=== PATIENT | female | born 1975 | race Caucasian/White ===

== ENCOUNTER 2016-08-03 21:48 | Emergency (ER) | payer OTHER ==
[~2016-08-03] VITALS: Ht 167.6 cm; Wt 90.7 kg
--- OUTSIDE RECORDS SUMMARY | 2016-08-03 22:12 | External Medical Summary Rpt ---
Author Author TIFFANY Enamorado, TIFFANY Eanmorado Organization [employer] Address Unknown Phone Unavailable
--- OUTSIDE RECORDS SUMMARY | 2016-08-03 22:12 | External Medical Summary Rpt ---
Demographics Preferred Language Spanish Marital Status Unknown Zoroastrian Affiliation Unknown Race Unknown Ethnic Group Unknown Author Author , Organization [employer] Address Unknown Phone Unavailable Purpose Continuity of Care Document - through 2016 Immunization No patient found.
--- OUTSIDE RECORDS SUMMARY | 2016-08-03 22:12 | External Medical Summary Rpt ---
Author Author [employer] Organization [employer] Address Unknown Phone Unavailable Purpose Continuity of Care Document - through 2016
--- OUTSIDE RECORDS SUMMARY | 2016-08-03 22:12 | External Medical Summary Rpt ---
Demographics Preferred Language Angolan Marital Status Unknown Cheondoism Affiliation Unknown Race Unknown Ethnic Group Unknown Author Author , Organization [employer] Address Unknown Phone Unavailable Purpose Continuity of Care Document - through 2016 Immunization No patient found.
--- OUTSIDE RECORDS SUMMARY | 2016-08-03 22:12 | External Medical Summary Rpt ---
Author Author TIFFANY Enamorado, TIFFANY Enamorado Organization [employer] Address Unknown Phone Unavailable
--- OUTSIDE RECORDS SUMMARY | 2016-08-03 22:12 | External Medical Summary Rpt ---
Demographics Home Phone Preferred Language Spanish Marital Status Unknown Hoahaoism Affiliation Unknown Race Unknown Ethnic Group Unknown Author Author , Organization [employer] Address Unknown Phone Unavailable Purpose Continuity of Care Document - 06-01-2016 through 2016 Problems Code Diagnosis DOS Provider Status E78.5 Hyperlipide 06-05-2016 constantino, unspecified I10 Essential 06-05-2016 (primary) hypertensio n R07.9 Chest pain, 06-05-2016 unspecified S46.912A Strain of 06-05-2016 unspecified muscle, fascia and tendon at shoulder and upper arm level, left arm, initial encounter X50.9XXA Other and 06-05-2016 unspecified overexertio n or strenuous movements or postures, initial encounter 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
--- OUTSIDE RECORDS SUMMARY | 2016-08-03 22:12 | External Medical Summary Rpt ---
Demographics Home Phone Preferred Language Amharic Marital Status Unknown Orthodox Affiliation Unknown Race Unknown Ethnic Group Unknown [...]
--- NOTE | 2016-08-03 22:45 | Emergency Room Report ---
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 N Clinical Suspician of Infection? N Mental Status: 1 - Regular (Normal Baseline) Sepsis Risk:Low Sepsis Risk Have you (or family members/close friends) recently traveled outside the [place]? N If Yes, where/when: Have you had exposure to infectious disease within the past month? N TB? Other? Specify: Source patient, RN notes reviewed, family, RN/MD Exam Limitations no limitations Comment This is a 41-year-old female patient presenting emergency room after sustaining a fall at home, downstairs, approximately 3 steps, resulting in injury to her RIGHT foot and LEFT flank. Patient has any other associated injuries. ALLERGIES Coded Allergies: cephalexin (From KEFLEX) (FEVER 08/03/16) History Medical History General CAD? No Angina: No MS: No Hypertension? Yes Hyperlipidemia? Yes CHF? No DVT? No PE? No COPD? No Asthma? No Anemia? No GERD? No Gastric ulcers? No GI Bleed? No Hernia? No Thyroid Problems? No Hypothyroidism? No CVA? No Seizures? No Diabetes? No Renal Insuffiency? No End Stage Renal Disease? No UTI? No Stones? No BPH? No GB Disease: No Nephritic Syndrome? No Asplenia? No Hepatitis? No Sickle Cell Disease? No Arthritis? No Migraines? No Cataracts? No Glaucoma? No MRSA? No HIV? No TB? No Anxiety? Yes Depression? No Cancer? 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 Musculoskeletal joint pain (RIGHT foot) Physical Exam Vital Signs Vital Signs Date Time Temp Pulse Resp B/P Pulse O2 O2 Flow FiO2 Ox Delivery Rate 08/03 2258 20 08/03 2226 98.8 89 20 135/84 99 05/04 2155 98.8 87 20 140/81 99 General Appearance normal appearance, WD/WN, moderate distress Neck normal inspection, non-tender, supple, full range of motion Respiratory Status Yes: trachea midline, chest symmetrical, non tender chest. No: respiratory distress. Lung Sounds bilateral: normal breath sounds, lungs clear. 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 No Comment Upon reevaluation patient appears medically stable, clinically improved, in minor distress. Advised patient of results obtained, need to take pain medications as needed for pain and follow up with PCP if no better, per discharge instructions. Results/Orders Laboratory Tests 08/03/16 2300: Urine Color YELLOW, Urine Appearance CLEAR, Urine pH 6.5, Ur Specific [place] 1.010, Urine Protein NEGATIVE, Urine Ketones NEGATIVE, Urine Blood NEGATIVE, Urine Nitrate NEGATIVE, Urine Bilirubin NEGATIVE, Urine Urobilinogen 0.2, Ur Leukocyte Esterase NEGATIVE, Urine WBC OCC, Ur Squamous Epith Cells 3-5, Urine Bacteria TRACE, Urine Glucose NEGATIVE Current Medication Orders Sig/Hoang Start time Last Medication Dose Route Stop Time Status Admin Tramadol HCl 1 LANA ONCE ONE 08/04 0045 AC PO 08/04 0046 Tramadol HCl 0 .STK-MED ONE 08/04 0040 DC PO Iopamidol 75 ML ONCE ONE 08/04 0030 UNV 08/04 IV 08/04 0031 0022 Sodium Chloride 10 ML PRN PRN 08/04 0030 UNV 08/04 IV 08/04 0151 0022 Sodium Chloride 10 ML PRN PRN 08/03 2345 AC IV 08/04 2334 Hydromorphone HCl 0 .STK-MED ONE 08/03 2252 DC .ROUTE Ondansetron HCl 0 .STK-MED ONE 08/04 2251 DC .ROUTE Hydromorphone HCl 1 MG ONCE ONE 08/03 2244 DC 08/03 IM 08/03 Ondansetron HCl 4 MG ONCE ONE 08/03 2244 DC 08/03 IM 08/03 2245 225 Orders Procedure Date/time Status DIET-NOTHING BY MOUTH 08/04 B Active IV SALINE LOCK 08/[address] ABD & PELVIS W/ CONTRAST 08/[address] ABD/PELVIS REQ 08/03 2245 Complete URINE 08/03 2245 Complete URINALYSIS/COMPLETE 08/04 2243 Complete HIP LT 2-3V W/PELVIS IF PERFOR 08/03 2202 Active FOOT-RT-3 VIEWS 08/03 2202 Active XRAY/CT/US XRAY/CT/US CT abdomen, pelvis CT interpretation by discussed w/radiologist CT Results see radiologist's report, consistent with LEFT lower flank subcutaneous fat stranding, suggesting contusion - Dr. Segovia at 12:30 AM EST Departure Departure Time of Disposition 0035 Disposition DC Home or Self Care(routine) Clinical Impression Primary Impression: Abdominal wall contusion Qualifiers: Encounter type: initial encounter Qualified Code: S30.1XXA - Contusion of abdominal wall, initial encounter Secondary Impressions: Contusion of right foot Qualifiers: Encounter type: initial encounter Qualified Code: S90.31XA - Contusion of right foot, initial encounter Condition STABLE Referrals Woo TYLER,Vishnu Wilkerson (Family): 4 Days-Call Office If not better Patient Instructions DI for Contusion Additional Instructions Please take the medications prescribed as directed, follow-up with Dr. Berkowitz if not better early next week. Discharge Counseling Counseled pt/family regarding diagnosis, test results, medications/RX, home care, follow up needs Comment Please take the medications prescribed as directed, follow-up with Dr. Berkowitz if not better early next week. ED Critical Care Critical Care No at [phone]
--- NOTE | 2016-08-03 22:45 | Emergency Room Report ---
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 N Clinical Suspician of Infection? N Mental Status: 1 - Regular (Normal Baseline) Sepsis Risk:Low Sepsis Risk Have you (or family members/close friends) recently traveled outside the [place]? N If Yes, where/when: Have you had exposure to infectious disease within the past month? N TB? Other? Specify: Source patient, RN notes reviewed, family, RN/MD Exam Limitations no limitations Comment This is a 41-year-old female patient presenting emergency room after sustaining a fall at home, downstairs, approximately 3 steps, resulting in injury to her RIGHT foot and LEFT flank. Patient has any other associated injuries. ALLERGIES Coded Allergies: cephalexin (From KEFLEX) (FEVER 08/03/16) History Medical History General CAD? No Angina: No MA: No Hypertension? Yes Hyperlipidemia? Yes CHF? No DVT? No PE? No COPD? No Asthma? No Anemia? No GERD? No Gastric ulcers? No GI Bleed? No Hernia? No Thyroid Problems? No Hypothyroidism? No CVA? No Seizures? No Diabetes? No Renal Insuffiency? No End Stage Renal Disease? No UTI? No Stones? No BPH? No GB Disease: No Nephritic Syndrome? No Asplenia? No Hepatitis? No Sickle Cell Disease? No Arthritis? No Migraines? No Cataracts? No Glaucoma? No MRSA? No HIV? No TB? No Anxiety? Yes Depression? No Cancer? 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 Musculoskeletal joint pain (RIGHT foot) Physical Exam Vital Signs Vital Signs Date Time Temp Pulse Resp B/P Pulse O2 O2 Flow FiO2 Ox Delivery Rate 08/03 2258 20 08/03 2226 98.8 89 20 135/84 99 05/04 2155 98.8 87 20 140/81 99 General Appearance normal appearance, WD/WN, moderate distress Neck normal inspection, non-tender, supple, full range of motion Respiratory Status Yes: trachea midline, chest symmetrical, non tender chest. No: respiratory distress. Lung Sounds bilateral: normal breath sounds, lungs clear. 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 No Comment Upon reevaluation patient appears medically stable, clinically improved, in minor distress. Advised patient of results obtained, need to take pain medications as needed for pain and follow up with PCP if no better, per discharge instructions. Results/Orders Laboratory Tests 08/03/16 2300: Urine Color YELLOW, Urine Appearance CLEAR, Urine pH 6.5, Ur Specific [place] 1.010, Urine Protein NEGATIVE, Urine Ketones NEGATIVE, Urine Blood NEGATIVE, Urine Nitrate NEGATIVE, Urine Bilirubin NEGATIVE, Urine Urobilinogen 0.2, Ur Leukocyte Esterase NEGATIVE, Urine WBC OCC, Ur Squamous Epith Cells 3-5, Urine Bacteria TRACE, Urine Glucose NEGATIVE Current Medication Orders Sig/Hoang Start time Last Medication Dose Route Stop Time Status Admin Tramadol HCl 1 LANA ONCE ONE 08/04 0045 AC PO 08/04 0046 Tramadol HCl 0 .STK-MED ONE 08/04 0040 DC PO Iopamidol 75 ML ONCE ONE 08/04 0030 UNV 08/04 IV 08/04 0031 0022 Sodium Chloride 10 ML PRN PRN 08/04 0030 UNV 08/04 IV 08/04 0151 0022 Sodium Chloride 10 ML PRN PRN 08/03 2345 AC IV 08/04 2334 Hydromorphone HCl 0 .STK-MED ONE 08/03 2252 DC .ROUTE Ondansetron HCl 0 .STK-MED ONE 08/04 2251 DC .ROUTE Hydromorphone HCl 1 MG ONCE ONE 08/03 2244 DC 08/03 IM 08/03 Ondansetron HCl 4 MG ONCE ONE 08/03 2244 DC 08/03 IM 08/03 2245 225 Orders Procedure Date/time Status DIET-NOTHING BY MOUTH 08/04 B Active IV SALINE LOCK 08/[address] ABD & PELVIS W/ CONTRAST 08/[address] ABD/PELVIS REQ 08/03 2245 Complete URINE 08/03 2245 Complete URINALYSIS/COMPLETE 08/04 2243 Complete HIP LT 2-3V W/PELVIS IF PERFOR 08/03 2202 Active FOOT-RT-3 VIEWS 08/03 2202 Active XRAY/CT/US XRAY/CT/US CT abdomen, pelvis CT interpretation by discussed w/radiologist CT Results see radiologist's report, consistent with LEFT lower flank subcutaneous fat stranding, suggesting contusion - Dr. Segovia at 12:30 AM EST Departure Departure Time of Disposition 0035 Disposition DC Home or Self Care(routine) Clinical Impression Primary Impression: Abdominal wall contusion Qualifiers: Encounter type: initial encounter Qualified Code: S30.1XXA - Contusion of abdominal wall, initial encounter Secondary Impressions: Contusion of right foot Qualifiers: Encounter type: initial encounter Qualified Code: S90.31XA - Contusion of right foot, initial encounter Condition STABLE Referrals Woo TYLER,Vishnu Wilkerson (Family): 4 Days-Call Office If not better Patient Instructions DI for Contusion Additional Instructions Please take the medications prescribed as directed, follow-up with Dr. Berkowitz if not better early next week. Discharge Counseling Counseled pt/family regarding diagnosis, test results, medications/RX, home care, follow up needs Comment Please take the medications prescribed as directed, follow-up with Dr. Berkowitz if not better early next week. ED Critical Care Critical Care No at 0045
[2016-08-03 23:05] LABS: URINE BILIRUBIN - DIPSTICK NEGATIVE (NEG); URINE BLOOD NEGATIVE (NEG)
[2016-08-04 00:50] VITALS: BP 104/69
--- NOTE | 2016-08-04 05:35 | RADIOLOGY REPORT PS360 ---
FOOT-RT-3 VIEWS HISTORY: Right foot pain following injury S/P FALL C/O RIGHT FOOT PAIN ORDERING PHYSICIAN: Chris Bauer MD PATIENT AGE: 41 years COMPARISON: None FINDINGS: There is an oblique lucency involving the base and medial aspect of the distal phalanx of the great toe consistent with a nondisplaced fracture. No other significant anomalies evident. IMPRESSION: Nondisplaced fracture involving the distal phalanx of the great toe
--- NOTE | 2016-08-04 05:37 | RADIOLOGY REPORT PS360 ---
HIP LT 2-3V W/PELVIS IF PERFOR HISTORY: Left hip pain following injury S/P FALL C/O RIGHT FOOT PAIN ORDERING PHYSICIAN: Chris Bauer MD PATIENT AGE: 41 years COMPARISON: None FINDINGS: No fracture or dislocation is evident. No significant degenerative change. No lytic or blastic change. Unremarkable soft tissues . Surgical clips are present in the left pelvic region IMPRESSION: Negative left hip
--- NOTE | 2016-08-04 05:44 | RADIOLOGY REPORT PS360 ---
CT ABD PELVIS W/ CONTRAST CLINICAL INDICATION: LEFT FLANK PAIN S/P FALL ORDERING PHYSICIAN: Chris Bauer MD PATIENT AGE: 41 years COMPARISON: None TECHNIQUE: Axial images obtained with sagittal and coronal reformats. PROCEDURE: Oral Contrast: None IV Contrast: 75 mL Isovue-370. FINDINGS: Lower thorax: No acute finding ABDOMEN: Liver: No masses or biliary dilatation. Gallbladder: Nondistended. No radio opaque stones. Pancreas: No masses or peripancreatic fluid collections. Spleen: Unremarkable. Adrenals: Unremarkable Kidneys/ureters: Nonobstructing right renal calculus. There is mild ectasia of the left ureter with ectopic ureteral insertion along the superior aspect of urinary bladder. Subcentimeter left renal cortical cyst. Stomach bowel: Nondistended. No obvious mass or thickening. There is a tiny umbilical hernia containing fat Appendix: No evidence of appendicitis PELVIS: Reproductive: Hysterectomy Bladder: Nondistended. No obvious stones or masses. ABDOMEN & PELVIS: Peritoneum: No abnormal fluid collections. No obvious inflammatory changes. No free air. Lymph nodes: No enlarged lymph nodes apparent. Vasculature: No evidence of abdominal aortic aneurysm. No retroperitoneal hemorrhage evident. Bones: Bilateral spondylolysis at L5. No acute fracture apparent. Soft tissues: There is mild increased density in the subcutaneous region in the left flank which may be due to contusion. There is trace amount of gas in the upper hip on the left and could be due to recent injection or laceration. IMPRESSION: 1. Mild contusion of the left flank. 2. No acute intra-abdominal or pelvic pathology. 3. Trace amount gas in the upper subcutaneous tissues of the left hip posteriorly and may be due to recent injection or laceration 3. Left UVJ ectopia. 4. Nonobstructing right renal stone
== END 2016-08-04 00:51 | disposition home or self-care (01) ==
LOC: ER 21:48
PROVIDERS: Emergency Medicine
DX: S30.1XXA Contusion of abdominal wall, initial encounter (principal); S90.31XA Contusion of right foot, initial encounter; I10 Essential (primary) hypertension; W10.9XXA Fall (on) (from) unspecified stairs and steps, initial encounter; Y92.009 Unspecified place in unspecified non-institutional (private) residence as the place of occurrence of the external cause
CPT/HCPCS: J2405; Q9967

== ENCOUNTER 2017-03-05 15:09 | Emergency (ER) | payer OTHER ==
[~2017-03-05] VITALS: Ht 162.6 cm; Wt 86.2 kg
--- OUTSIDE RECORDS SUMMARY | 2017-03-05 15:13 | External Medical Summary Rpt | CCD ---
Demographics Preferred Language Burmese Marital Status Unknown Adventism Affiliation Unknown Race Unknown Ethnic Group Unknown Author Author , [employer] ALL[employer] Address Unknown Phone Immunization No patient found.
--- OUTSIDE RECORDS SUMMARY | 2017-03-05 15:13 | External Medical Summary Rpt ---
Author Author TIFFANY Enamorado, [employer] Organization [employer] Address Unknown Phone Unavailable
--- OUTSIDE RECORDS SUMMARY | 2017-03-05 15:13 | External Medical Summary Rpt | CCD ---
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 OF UNSPECIFIED LUNG E11.9 TYPE 2 01-24-2017 DIABETES MELLITUS WITHOUT COMPLICATIO NS I10 ESSENTIAL 01-24-2017 (PRIMARY) HYPERTENSIO N E78.5 Hyperlipide 06-05-2016 constantino, unspecified R07.9 Chest pain, 06-05-2016 unspecified S46.912A Strain of 06-05-2016 unspecified muscle, fascia and tendon at shoulder and upper arm level, left arm, initial encounter X50.9XXA Other and 06-05-2016 unspecified overexertio n or strenuous movements or postures, initial encounter 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
--- OUTSIDE RECORDS SUMMARY | 2017-03-05 15:13 | External Medical Summary Rpt | CCD ---
Author Author , [employer] Organization [employer] Address Unknown Phone [email or web address] Purpose Continuity of Care Document - 06-01-2016 [...]
--- OUTSIDE RECORDS SUMMARY | 2017-03-05 15:13 | External Medical Summary Rpt | CCD ---
Demographics Preferred Language Zambian Marital Status Unknown Jehovah'S Witness Affiliation Unknown Race Unknown Ethnic Group Unknown Author Author , TIFFANY ALLEN Address Unknown Phone Immunization No patient found.
--- NOTE | 2017-03-05 16:05 | RADIOLOGY REPORT PS360 ---
KNEE-3 VIEWS-RT HISTORY: Popping sensation HEARD IT POP ORDERING PHYSICIAN: DENISSE HAYNES APRN PATIENT AGE: 41 years COMPARISON: None FINDINGS: No fracture or dislocation. No lytic or blastic change. Normal mineralization. No significant arthritic changes evident. No other significant findings IMPRESSION: Negative Knee
--- NOTE | 2017-03-05 17:07 | Urgent Treatment Center Report ---
History of Present Issue Date/Time Seen by Provider 03/05/17 1707 Visit Reason Pt arrived:Wheelchair Presenting Problem:PT STATES THAT SHE WAS RUNNING AND HEARD HER RIGHT KNEE POP AND IS IN PAIN Location if Accident:Home Onset of symptoms date/time:/ or onset unknown for:MEDICAL HX UNKNOWN Have you (or family members/close friends) recently traveled outside the [place]? N If Yes, where/when: Have you had exposure to infectious disease within the past month? TB? Other? Specify: c/o mild pain rt knee x weeks, ignored it, ran today to do something and felt pop, immediate pain anteriorly, inability to bear weight, happened 20 mins before arrival, no treatment before arrival Source patient Exam Limitations clinical condition ALLERGIES Coded Allergies: cephalexin (From [facility]) (FEVER 08/03/16) History Medical History General CAD? No Angina: No DE: No Hypertension? Yes Hyperlipidemia? Yes CHF? No DVT? No PE? No COPD? No Asthma? No Anemia? No GERD? No Gastric ulcers? No GI Bleed? No Hernia? No Thyroid Problems? No Hypothyroidism? No CVA? No Seizures? No Diabetes? No Renal Insuffiency? No UTI? No Stones? No BPH? No GB Disease: No Nephritic Syndrome? No Asplenia? No Hepatitis? No Sickle Cell Disease? No Arthritis? No Migraines? No Cataracts? No Glaucoma? No MRSA? No HIV? No TB? No Anxiety? Yes Depression? No Cancer? No More? No Immunization HX DT/Tetanus Unknown Surgical Hx Previous Surgery?Y ENDOMETRIOSIS SURGERIES Social History Smoking Hx Smoker: Current Every Day Smoker Tobacco: Yes Type Cigarettes Packs/day 1 1/2 - 2 Packs Alcohol Alcohol: No Review of Systems All Other Systems Reviewed and Negative (as appropriate for CC) Musculoskeletal see HPI Skin denies lesions, denies lumps, denies rash Psychiatric/Neurological denies numbness, denies tingling, weakness Physical Exam Vital Signs Vital Signs Date Time Temp Pulse Resp B/P Pulse O2 O2 Flow FiO2 Ox Delivery Rate 03/05 1823 98.4 91 20 133/87 97 03/05 1747 20 03/05 1558 98.4 91 20 133/87 97 General Appearance seated in w/c, refusing to bear weight, in tears at times Respiratory Status No: respiratory distress. Cardiovascular no peripheral edema Peripheral Pulses Pulses normal Yes (DP/PT) Back gait abnormality (won't bear wt on RLE) Extremities severe ttp anterior rt knee w/ mild ttp lateral, medial and posterior knee; trouble localizing pain as ttp throughout entire rt knee; refusing to extend knee beyond 45 degrees, tried and in tears; limited flexion to approx 100 degrees; refusing to bear wt; attempted testing (drawers/lachmans) pt refused and wanted me to stop; swelling anterior medial suprapatellar region of rt knee Strength 3 Lower Ext (R), 5 Lower Ext (L) Neurologic alert, no motor/sensory deficits, oriented x 3 Skin intact, normal color, warm/dry Medical Decision Making LABS/Meds/Orders Pt receiving controlled substance in ED? No Results/Orders Orders Procedure Date/time Status STABILIZE JOINT 03/05 1738 Active XRAY/CT/US XRAY/CT/US XRAY knee (right) XR interpretation by reviewed by me, discussed w/radiologist (read report) Xray Results no acute findings Progress [facility] Progress Notes Date 03/05/17 Time 181 Comment pt did not tolerate knee immobilizer due to increased pain with extension. KEATON wrap applied. Plans to try knee immobilizer at home once pain improved. Pain "somewhat" better w/ toradol before knee immobilizer tried. Procedures Orthopedic/Inj/Splint Ortho Proc/Injections/Splints Risks/benefits discussed with pt/guardian? Yes Hand-Made Type knee immobilizer Pre-Proc Neuro Vasc Exam normal Post-Proc Neuro Vasc Exam normal, unchanged from pre-exam Complications crutches supplied Departure Departure Time of Disposition 180 Disposition DC Home or Self Care(routine) Clinical Impression Primary Impression: Right knee sprain Qualifiers: Encounter type: initial encounter Involved ligament of knee: anterior cruciate ligament Qualified Code: S83.511A - Sprain of anterior cruciate ligament of right knee, initial encounter Condition STABLE Referrals Marco Blair MD Call first thing in the morning. Report seen in [facility] this evening. Normal xray. Concern for injury to right anterior ligament and told to call ortho for follow up appointment in morning. If they can not see you this week, follow up with Dr. Berkowitz. Patient Instructions DI for Knee Sprain, How To Perform RICE (Rest, Ice, Compress, Elevate), How to Use a Knee Immobilizer, How to Use an Elastic Bandage -Knee Sprain, How to Use Crutches Additional Instructions * no weight bearing right leg * Rest * ice 15-20 mins 3-4 times a day * Keaton wrap (or if you are able to get knee immobilizer on without worse pain) for support and swelling unless in shower. Be sure not too tight but not too loose either * Elevate as discussed as much as possible to help reduce swelling and therefore , pain * Ibuprofen 800mg every 6 hours as needed for pain and inflammation. You can take it again in 6 hours. If you need something more, you can take tylenol 650mg every 4 hours or 1000mg every 6 hours as needed as long as your primary care provider has told you it is ok to take both. Discharge Counseling Counseled pt/family regarding diagnosis, test results, medications/RX, home care, follow up needs at [phone]
[2017-03-05 18:23] VITALS: BP 133/87
== END 2017-03-05 18:24 | disposition home or self-care (01) ==
LOC: UTC 15:09
PROC: 2W3LX1Z Immobilization of Right Lower Extremity using Splint (ICD-10-PCS; principal; 2017-03-05)
DX: S83.511A Sprain of anterior cruciate ligament of right knee, initial encounter (principal); I10 Essential (primary) hypertension; E78.5 Hyperlipidemia, unspecified; F41.9 Anxiety disorder, unspecified; F17.210 Nicotine dependence, cigarettes, uncomplicated